=== PATIENT | female | born 1975 | race Hispanic/Latino ===

== ENCOUNTER 2024-07-31 10:53 | Emergency (ER) | payer MEDICAID ==
[2024-07-31 11:13] LABS: Absolute Neutrophil Ct (ANC) 2.44 x10^3/uL (1.56-6.13); BASOPHIL % 0.4 % (0.1-1.2); Basophil (Absolute #) 0.02 x10^3/uL (0.01-0.08); Eosinophil % 5.8 % (0.7-5.8); Eosinophil (Absolute #) 0.29 x10^3/uL (0.04-0.36); Hematocrit 31.7 % (34.1-44.9); Hemoglobin 9.3 g/dL (11.2-15.7); IMMATURE GRAN # 0.01 x10^3u/L (0.001-0.031); IMMATURE GRAN % 0.2 % (0.001-0.429); Lymphocyte (Absolute #) 1.82 x10^3/uL (1.18-3.74); Lymphocytes % 36.5 % (19.3-51.7); Mean Cell Volume 67.4 fL (79.4-94.8); Mean Corpuscular Hemoglobin 19.8 pg (25.6-32.2); Mean Corpuscular Hgb Concent. 29.3 g/dL (32.2-35.5); Mean Platelet Volume 9.2 fL (9.4-12.3); Neutrophil % 49.1 % (34.0-71.1); Platelet Count 437 x10^3/uL (182-369); Red Cell Distribution Width 17.9 % (11.7-14.4)
[2024-07-31] MEDS ORDERED: BABY ASPIRIN 81 MG CHEW ONE (11:13)
[2024-07-31] MEDS ORDERED: Zofran 4 MG/2 ML VIAL ONE (11:13)
[2024-07-31] MEDS ORDERED: Pepcid 20 MG VIAL IV ONE (11:13)
[2024-07-31] MEDS ORDERED: NITRO-BID 2% UD PACKETS ONE (11:13)
[2024-07-31] MEDS ORDERED: Sodium Chloride 0.9% 1000 ML 1,000 ML ONE (11:14)
[2024-07-31] MEDS ORDERED: MORPHINE SULFATE 4 MG INJ ONE (11:14)
[2024-07-31] MEDS: Sodium Chloride 0.9% 1000 ML 1,000 ML IV STA (11:17)
[2024-07-31] MEDS: BABY ASPIRIN 81 MG CHEW PO ONE (11:18)
[2024-07-31] MEDS: Zofran 4 MG/2 ML VIAL IV ONE (11:19)
[2024-07-31] MEDS: NITRO-BID 2% UD PACKETS TOP ONE (11:21)
[2024-07-31] MEDS: MORPHINE SULFATE 4 MG INJ IV ONE (11:21)
[2024-07-31] MEDS: Pepcid 20 MG VIAL IV ONE (11:21)
[2024-07-31 11:23] VITALS: TEMP 97.8
[2024-07-31 11:33] LABS: ANION GAP 9.1 MEQ/L (5-15); BILIRUBIN,TOTAL 0.3 mg/dL (0.2-1.3); Creatinine 1 0.49 mg/dL (0.52-1.04); EST GLOMERULAR FILTRATION RATE 117.6 ML/MIN; Total Protein 6.9 g/dL (6.3-8.2)
--- NOTE | 2024-07-31 11:37 | ERPHSYRPT ---
- History of Present Illness Time Seen by Provider: 07/31/24 13:35 Patient Subjective Stated Complaint: Chest pain Triage Nursing Assessment: Patient ambulated back to ED and transferred self to bed. Patient speaks english and has a friend with her to translate. Patient A+O X 3. Patient's skin pink, warm and dry. Patient complains of intermittent chest pain the goes down left shoulder/arm and into back 8/10 for the past few days. Patient also complains of N/V. Patient takes Omeprazole for GERD, but has been out for 5 days. Patient also complains of pain to behind right knee. Right knee noted to be swollen. Physician History: Patient complains of intermittent chest pain the goes down left shoulder/arm and into back 8/10 for the past few days. Patient also complains of N/V. Patient takes Omeprazole for GERD, but has been out for 5 days. Patient also complains o f pain to behind right knee. Right knee noted to be swollen. Hx of pulmonary Embolism 3 years ago. Patient was on Coumadin for her pulmonary embolism which was stopped approximately 1 year ago as right side of the pulmonary embolism same findings where stabilized. Timing/Duration: today Activities at Onset: none Quality: sharpness Location: substernal Chest Pain Radiation: arm, back Severity of Pain-Max: moderate Severity of Pain-Current: moderate Associated Symptoms: nausea, vomiting Prior Chest Pain/Cardiac Workup: no prior chest pain Nitro Today/Relief: no nitro taken today Aspirin Treatment Today: no aspirin today Allergies/Adverse Reactions: No Known Drug Allergies Allergy (Unverified 07/31/24 11:04) Hx Tetanus, Diphtheria Vaccination/Date Given: No Hx Influenza Vaccination/Date Given: No Hx Pneumococcal Vaccination/Date Given: No Immunizations Up to Date: Yes Travel Risk - International Travel Have you traveled outside of the country in past 3 weeks: No - Emerging Infectious Disease Are you exhibiting symptoms associated with any current EIDs: No - Review of Systems Constitutional: No Fever, No Chills Eyes: No Symptoms Ears, Nose, & Throat: No Symptoms Respiratory: No Cough, No Dyspnea Cardiac: Chest Pain, No Edema, No Syncope Abdominal/Gastrointestinal: Nausea, Vomiting, No Abdominal Pain, No Diarrhea Genitourinary Symptoms: No Dysuria Musculoskeletal: Other (pain behind left knee), No Back Pain, No Neck Pain Skin: No Rash Neurological: No Dizziness, No Focal Weakness, No Sensory Changes Psychological: No Symptoms Endocrine: No Symptoms All Other Systems: Reviewed and Negative - Past Medical History Pertinent Past Medical History: Yes Neurological History: No Pertinent History ENT History: No Pertinent History Cardiac History: No Pertinent History Respiratory History: No Pertinent History Endocrine Medical History: No Pertinent History Musculoskeletal History: No Pertinent History GI Medical History: GERD History: No Pertinent History Psycho-Social History: No Pertinent History Female Reproductive Disorders: No Pertinent History Other Medical History: had blood clots in lung-was on meds for 1 year 4 years ago - Past Surgical History Past Surgical History: Yes Neuro Surgical History: No Pertinent History Cardiac: No Pertinent History Respiratory: No Pertinent History Gastrointestinal: No Pertinent History Genitourinary: No Pertinent History Musculoskeletal: No Pertinent History Female Surgical History: Section Other Surgical History: C section X 1 - Female History Hx Last Menstrual Period: 2 days ago Hx Now: No - Social History Smoking Status: Never smoker Exposure to second hand smoke: No Drug Use: none - Social Determinants of Health Will the patient participate in the screening: Yes Do you worry about a steady place to live?: No Do you have any problems with any of the following?: No known problems In the past 12 months,have you had to go without utilities?: No Transportation Issues: No Has anyone in your support network made you feel unsafe?: No Have you or anyone in your house had to go without enough: No - Nursing Vital Signs Nursing Vital Signs: Initial Vital Signs Pulse Rate 68 07/31/24 11:00 Respiratory Rate 20 07/31/24 11:00 Pain Scale Pain Intensity 2 - Physical Exam General Appearance: no apparent distress, alert Eye Exam: PERRL/EOMI, eyes nml inspection Ears, Nose, Throat Exam: normal ENT inspection, moist mucous membranes Neck Exam: normal inspection, non-tender, supple, full range of motion Respiratory Exam: normal breath sounds, lungs clear, No respiratory distress Cardiovascular Exam: regular rate/rhythm, normal heart sounds Gastrointestinal/Abdomen Exam: soft, No tenderness, No mass Back Exam: normal inspection, No CVA tenderness, No vertebral tenderness Extremity Exam: normal inspection, normal range of motion, calf tenderness (left), inflammation, No shanice's sign Neurologic Exam: alert, oriented x 3, cooperative, normal mood/affect, sensation nml, No motor deficits Skin Exam: normal color, warm, dry SpO2 Interpretation: normal SpO2: 98 O2 Delivery: Room Air - Course Nursing assessment & vital signs reviewed: Yes - Radiology Exams Chest X-ray Interpretation: Interpreted by me, Reviewed by me, No Pneumonia, No Pneumothorax - CT Exams Chest CT Interpretation: Tele-radiologist Report Ordered Tests: Active Orders 24 hr Category Date Time Status Human Resources Communications Manager STAT Care 07/31/24 11:01 Active EKG-ER Only STAT Care 07/31/24 11:01 Active Oxygen-ED Only Nasal Cannula 2 lpm Care 07/31/24 11:01 Active CHEST 1 VIEW (PORTABLE) Stat Exams 07/31/24 11:01 Taken CHEST WITH CONTRAST [CT] Stat Exams 07/31/24 11:43 Completed KNEE (3 VIEWS) Stat Exams 07/31/24 12:12 Taken CBC W DIFF Stat Lab 07/31/24 11:08 Completed CMP Stat Lab 07/31/24 11:08 Completed D-DIMER QUANTITATIVE Stat Lab 07/31/24 11:08 Completed TROPONIN Q4H Lab 07/31/24 11:08 Completed TROPONIN Q4H Lab 07/31/24 15:15 Ordered TROPONIN Q4H Lab 07/31/24 19:15 Ordered Uric Acid Stat Lab 07/31/24 11:08 Completed Medication Summary Discontinued Medications Generic Name Dose Route Start Last Admin Trade Name Freq PRN Reason Stop Dose Admin Aspirin 81 mg 07/31/24 11:01 07/31/24 11:18 Aspirin 81 Mg Tab.Chew PO 07/31/24 11:02 81 mg STAT ONE Administration Aspirin Confirm 07/31/24 11:13 Aspirin 81 Mg Tab.Chew Administered 07/31/24 11:14 Dose 81 mg .ROUTE .STK-MED ONE Enoxaparin Sodium 120 mg 07/31/24 13:37 Enoxaparin Sodium 120 Mg/0.8 Ml Syringe SQ 07/31/24 13:38 STAT STA Famotidine 20 mg 07/31/24 11:01 07/31/24 11:21 Famotidine 20 Mg/1 Vial IV 07/31/24 11:02 20 mg STAT ONE Administration Famotidine Confirm 07/31/24 11:13 Famotidine 20 Mg/1 Vial Administered 07/31/24 11:14 Dose 20 mg IV .STK-MED ONE Sodium Chloride 1,000 mls @ 999 mls/hr 07/31/24 11:01 07/31/24 12:21 Sodium Chloride 0.9% 1000 Ml IV 07/31/24 12:01 Infused .Q1H1M STA Infusion Sodium Chloride Confirm 07/31/24 11:14 Sodium Chloride 0.9% 1000 Ml Administered 07/31/24 11:15 Dose 1,000 mls @ ud .ROUTE .STK-MED ONE Ketorolac Tromethamine 60 mg 07/31/24 12:52 07/31/24 13:02 Ketorolac Tromethamine 30 Mg/Ml Inj IM 07/31/24 12:53 Not Given STAT ONE Ketorolac Tromethamine 30 mg 07/31/24 13:02 07/31/24 13:04 Ketorolac Tromethamine 30 Mg/Ml Inj IV 07/31/24 13:03 30 mg STAT ONE Administration Ketorolac Tromethamine Confirm 07/31/24 13:03 Ketorolac Tromethamine 30 Mg/Ml Inj Administered 07/31/24 13:04 Dose 30 mg .ROUTE .STK-MED ONE Morphine Sulfate 4 mg 07/31/24 11:01 07/31/24 11:21 Morphine Sulfate 4 Mg/Ml Injection IV 07/31/24 11:02 4 mg STAT ONE Administration Morphine Sulfate Confirm 07/31/24 11:14 Morphine Sulfate 4 Mg/Ml Injection Administered 07/31/24 11:15 Dose 4 mg .ROUTE .STK-MED ONE Nitroglycerin 1 gm 07/31/24 11:01 07/31/24 11:21 Nitroglycerin 1 Gm Packet TOP 07/31/24 11:02 1 gm STAT ONE Administration Nitroglycerin Confirm 07/31/24 11:13 Nitroglycerin 1 Gm Packet Administered 07/31/24 11:14 Dose 1 gm .ROUTE .STK-MED ONE Ondansetron HCl 4 mg 07/31/24 11:01 07/31/24 11:19 Ondansetron Hcl 4 Mg/2 Ml Vial IV 07/31/24 11:02 4 mg STAT ONE Administration Ondansetron HCl Confirm 07/31/24 11:13 Ondansetron Hcl 4 Mg/2 Ml Vial Administered 07/31/24 11:14 Dose 4 mg .ROUTE .STK-MED ONE Pantoprazole Sodium 40 mg 07/31/24 13:04 07/31/24 13:17 Pantoprazole 40 Mg Vial IV 07/31/24 13:05 40 mg STAT ONE Administration Pantoprazole Sodium Confirm 07/31/24 13:16 Pantoprazole 40 Mg Vial Administered 07/31/24 13:17 Dose 40 mg IV .STK-MED ONE Rivaroxaban 20 mg 07/31/24 13:39 Rivaroxaban 10 Mg Tablet PO 07/31/24 13:40 ONCE ONE Lab/Rad Data: Laboratory Result Diagrams 07/31/24 11:08 07/31/24 11:08 Laboratory Results 07/31/24 07/31/24 07/31/24 Range/Units 11:08 11:08 11:08 WBC (3.98-10.04) x10^3/uL RBC (3.93-5.22) x10^6/uL Hgb (11.2-15.7) g/dL Hct (34.1-44.9) % MCV (79.4-94.8) fL MCH (25.6-32.2) pg MCHC (32.2-35.5) g/dL RDW (11.7-14.4) % Plt Count (182-369) x10^3/uL MPV (9.4-12.3) fL Gran % (34.0-71.1) % Immature Gran % (Auto) (0.001-0.429) % Nucleat RBC Rel Count (0.00-0.2) % Eos # (Auto) (0.04-0.36) x10^3/uL Immature Gran # (Auto) (0.001-0.031) x10^3u/L Absolute Lymphs (auto) (1.18-3.74) x10^3/uL Absolute Monos (auto) (0.24-0.86) x10^3/uL Absolute Nucleated RBC (0.00-0.012) x10^3u/L Lymphocytes % (19.3-51.7) % Monocytes % (4.7-12.5) % Eosinophils % (0.7-5.8) % Basophils % (0.1-1.2) % Absolute Granulocytes (1.56-6.13) x10^3/uL Basophils # (0.01-0.08) x10^3/uL D-Dimer 0.68 H* (0.0-0.50) mg/L Sodium (135-145) mmol/L Potassium (3.5-5.1) mmol/L Chloride (98-107) mmol/L Carbon Dioxide (22-30) mmol/L Anion Gap (5-15) MEQ/L BUN (7-17) mg/dL Creatinine (0.52-1.04) mg/dL Estimated GFR ML/MIN Glucose (74-106) mg/dL Uric Acid 4.0 (2.6-6.0) mg/dL Calcium (8.4-10.2) mg/dL Total Bilirubin (0.2-1.3) mg/dL AST (14-36) U/L ALT (0-35) U/L Alkaline Phosphatase (38-126) U/L Troponin I < 0.012 (0.000-0.033) ng/mL Serum Total Protein (6.3-8.2) g/dL Albumin (3.5-5.0) g/dL 07/31/24 07/31/24 Range/Units 11:08 11:08 WBC 5.0 (3.98-10.04) x10^3/uL RBC 4.70 (3.93-5.22) x10^6/uL Hgb 9.3 L (11.2-15.7) g/dL Hct 31.7 L (34.1-44.9) % MCV 67.4 L (79.4-94.8) fL MCH 19.8 L (25.6-32.2) pg MCHC 29.3 L (32.2-35.5) g/dL RDW 17.9 H (11.7-14.4) % Plt Count 437 H (182-369) x10^3/uL MPV 9.2 L (9.4-12.3) fL Gran % 49.1 (34.0-71.1) % Immature Gran % (Auto) 0.2 (0.001-0.429) % Nucleat RBC Rel Count 0.0 (0.00-0.2) % Eos # (Auto) 0.29 (0.04-0.36) x10^3/uL Immature Gran # (Auto) 0.01 (0.001-0.031) x10^3u/L Absolute Lymphs (auto) 1.82 (1.18-3.74) x10^3/uL Absolute Monos (auto) 0.40 (0.24-0.86) x10^3/uL Absolute Nucleated RBC 0.00 (0.00-0.012) x10^3u/L Lymphocytes % 36.5 (19.3-51.7) % Monocytes % 8.0 (4.7-12.5) % Eosinophils % 5.8 (0.7-5.8) % Basophils % 0.4 (0.1-1.2) % Absolute Granulocytes 2.44 (1.56-6.13) x10^3/uL Basophils # 0.02 (0.01-0.08) x10^3/uL D-Dimer (0.0-0.50) mg/L Sodium 138 (135-145) mmol/L Potassium 4.0 (3.5-5.1) mmol/L Chloride 108 H (98-107) mmol/L Carbon Dioxide 25 (22-30) mmol/L Anion Gap 9.1 (5-15) MEQ/L BUN 6 L (7-17) mg/dL Creatinine 0.49 L (0.52-1.04) mg/dL Estimated GFR 117.6 ML/MIN Glucose 102 (74-106) mg/dL Uric Acid (2.6-6.0) mg/dL Calcium 9.0 (8.4-10.2) mg/dL Total Bilirubin 0.30 (0.2-1.3) mg/dL AST 26 (14-36) U/L ALT 19 (0-35) U/L Alkaline Phosphatase 82 (38-126) U/L Troponin I (0.000-0.033) ng/mL Serum Total Protein 6.9 (6.3-8.2) g/dL Albumin 4.0 (3.5-5.0) g/dL CLINICAL HISTORY: chest pain, elevated d-dimer COMPARISON: None. TECHNIQUE: Contiguous axial CT angiographic images of the chest were acquired with the administration of intravenous contrast. Coronal and sagittal reconstructions were also obtained. One of these 3D techniques was utilized: Maximum Intensity Pixel (MIP), 3D Reconstructed Images, Volume Rendered Images, Surface Shaded Rendering. One of the following dose reduction techniques was utilized for this exam: Automated exposure control, adjustment of the mA and/or kV according to patient size, and use of iterative reconstruction. FINDINGS: Aorta: The thoracic aorta is normal in caliber. No evidence of aneurysm, dissection, or significant atherosclerotic changes. The aortic arch and descending thoracic aorta are unremarkable. Pulmonary Arteries: The right thrombus obstructs about 30% occlusion of the right lower lobe posterior subsegmental branch and extended to the second generation right lower lobe causing less than 60% obstruction thrombus much appreciated on axial and coronal images. Otherwise, pulmonary arteries are normal in size and opacification. No evidence of pulmonary embolism. PatientID: [id number] Patient Name: JASON BARBA Exam Date: 07/31/2024 Procedure: CHEST WITH CONTRAST page 1 of 3 No stenosis or filling defects. Superior Vena Cava (SVC) and Inferior Vena Cava (IVC): Normal opacification and caliber. There is no evidence of thrombus or obstruction. Coronary Arteries: Coronary arteries are well-opacified. No significant stenosis or atherosclerotic changes. Mediastinum: Evidence of wide diaphragmatic hiatus with sliding hernia harboring part of another gastric fundus. No mediastinal mass or lymphadenopathy apart from small left para-aortic lymph nodes was noted. Normal appearance of the thymus. Heart: Normal size and morphology of the heart. No pericardial effusion. Lungs: Bilateral posterior subpleural fine fibrotic bands/gravitational changes. Lungs are clear with no evidence of consolidation, nodules, or masses. No pleural effusion or thickening. Bones: No fractures or lytic/sclerotic lesions of the visualized bony structures. Normal alignment and bone density. Soft Tissues: Normal appearance of the visualized soft tissues. No abnormal masses or fluid collections. IMPRESSION: 1. The right thrombus obstructs about 30% occlusion of the right lower lobe posterior subsegmental branch and extended to the second generation right lower lobe causing less than 60% obstruction thrombus much appreciated on axial and coronal images. 2. Small para-aortic reactive lymph node is seen. 3. Evidence of diaphragmatic hiatus hernia. [facility] ER was called at [phone] - Progress Progress: improved Air Movement: good Progress Note: 07/31/24 14:03 Patient left side chest pain is much better. Patient CT of the chest did show some right side second generation pulmonary artery occlusion 30% due to previous pulmonary embolism as well as third-generation right lower lobe occlusion about 60% which appears to be stable. Patient is denying any pain on the right side of the chest. 1 CAT scan patient also has a large sliding hiatal hernia for which patient has been taking omeprazole but has not taken for last few weeks. I sent a prescription to the pharmacy and advised her to stay on that. Patient has a right knee swelling x-ray did not reveal any significant finding but right lower extremity venous duplex is ordered just to confirm popliteal cyst or a DVT. Right venous duplex next right lower extremity ordered on Friday which is in 3 days. Patient is informed about all this diagnostic testing with the help of rn clinical documentation specialist. Patient is advised that if her chest pain come back she needs to come back to the emergency room. Patient has a pulmonary embolism on the right side which was treated with Coumadin for at least 2 to 3 years and then afterwards once that stabilized Coumadin was stopped. Patient does not have any complaint on the right side of the chest where she had a pulmonary embolism. Blood Culture(s) Obtained: No Antibiotics given: No Counseled pt/family regarding: lab results, diagnosis, need for follow-up, rad results Medical Desision Making - Independent Historian Additional History obtained from: Family - Diagnostic Testing Diagnostic test were ordered, analyzed, and reviewed by me: Yes Radiological Interpretation: Interpreted by me, Reviewed by me, Teleradiologist Report - Risk of complications Low Risk: Low risk of morbidity from additional dx testing or treatment - Departure Departure Disposition: Home Clinical Impression: Left-sided chest wall pain, Sliding hiatal hernia, History of pulmonary embolism, Right medial knee pain Condition: Stable Critical Care Time: No Referrals: DOCTOR,NO FAMILY [Primary Care Provider] - Follow up/PCP as directed Instructions: Hiatal hernia, Chest Pain (DC), Hiatal hernia - Discharge instructions Additional Instructions: Symptoms require come immediately back to emergency room. You are scheduled for venous duplex test on your right lower extremity on Friday at [facility]. Discharge/Care Plan JAMESONJASON was seen on 07/31/24 in the Emergency Room. The patient was counseled regarding Diagnosis,Lab results, Imaging studies, need for follow up and when to return to the Emergency Room. Prescriptions given: Discharge Note I have spoken with the patient and/or caregivers. I have explained the patient's condition, diagnosis and treatment plan based on the information available to me at this time. I have answered the patient's and/or caregiver's questions and addressed any concerns. The patient and/or caregivers have as good understanding of the patient's diagnosis, condition and treatment plan as can be expected at this point. The vital signs have been stable. The patient's condition is stable and appropriate for discharge from the emergency department. The patient will pursue further outpatient evaluation with the primary care physician or other designated or consulting physician as outlined in the discharge instructions. The patient and/or caregivers are agreeable to this plan of care and follow-up instructions have been explained in detail. The patient and/or caregivers have received these instruction. The patient/and or caregivers are aware that any significant change in condition or worsening of symptoms should prompt an immediate return to this or the closest emergency department or call 911. JAMESONJASON was seen on 07/31/24 n the Emergency Room. At that time you were treated for an emergent condition, during your visit Laboratory, Radiology and/or other procedures may have been ordered. It is very important that you follow-up with your Primary Care Physician NO FAMILY DOCTOR within the next 24- 48 hours to review your Emergency Room visit and the final results of testing that was ordered. Some test results such as Urine Cultures, Blood Cultures, and other cultures if ordered will not be finalized for 24-48 hours. If you do not have a Primary Care Provider please call the medical records department at [phone] ext [phone] to obtain a copy of your results or you may sign into our patient portal to obtain these results by visiting us @ [email or web address] and completing the following steps: 1. Click on the Patient Portal link 2. Click the Patient Self Enrollment Link to complete the enrollment form and entering your 3. Once the enrollment form is completed you will receive an email with a temporary ID and password at the email address you provided. 4. Next choose a user name and password. Your user name must be at least 4 characters long and your password must be at least 4 characters long. 5. Choose a security question from the list and provide your answer to the question. If you already have signed into the Health Portal you may access your Health Care Information 24/02 by the following steps: 1. Login to our website @ [email or web address] 2. Enter your original user name and password. FAQS [facility] Health Portal is an online tool that contains your Lab Results, Radiology Reports, Visit History, Discharge Instructions and Health Summary Lab and Radiology Results will not be available for 72 hours on the portal. The Portal is a secure site, passwords are encryted and URLs are re-written so they cannot be copied and pasted. You and authorized family members are the only ones who can access your Portal. Also there is a timeout feature that protects your information if you leave the Portal page open. If you have technical difficulty please use the Contact Us link on the page this will allow you to submit any questions you have regarding the Portal or you may contact the Medical Record Department at [phone] ext [phone]. Prescriptions: Omeprazole 1 tab PO DAILY 30 Days #30 tablet Outpatient Orders: VENOUS UNILAT/LIMITED EXTREMIT Facility: [facility], Location: RADIOLOGY
[2024-07-31] MEDS: TORAdol 30 mg Injection IM ONE (13:02)
[2024-07-31] MEDS ORDERED: TORAdol 30 mg Injection ONE (13:03)
[2024-07-31] MEDS: TORAdol 30 mg Injection IV ONE (13:04)
[2024-07-31] MEDS ORDERED: PROTONIX 40 MG IV IV ONE (13:16)
[2024-07-31] MEDS: PROTONIX 40 MG IV IV ONE (13:17)
--- NOTE | 2024-07-31 13:24 | XRAY ---
CLINICAL HISTORY: chest pain, elevated d-dimer COMPARISON: None. TECHNIQUE: Contiguous axial CT angiographic images of the chest were acquired with the administration of intravenous contrast. Coronal and sagittal reconstructions were also obtained. One of these 3D techniques was utilized: Maximum Intensity Pixel (MIP), 3D Reconstructed Images, Volume Rendered Images, Surface Shaded Rendering. One of the following dose reduction techniques was utilized for this exam: Automated exposure control, adjustment of the mA and/or kV according to patient size, and use of iterative reconstruction. FINDINGS: Aorta: The thoracic aorta is normal in caliber. No evidence of aneurysm, dissection, or significant atherosclerotic changes. The aortic arch and descending thoracic aorta are unremarkable. Pulmonary Arteries: The right thrombus obstructs about 30% occlusion of the right lower lobe posterior subsegmental branch and extended to the second generation right lower lobe causing less than 60% obstruction thrombus much appreciated on axial and coronal images. Otherwise, pulmonary arteries are normal in size and opacification. No evidence of pulmonary embolism. No stenosis or filling defects. Superior Vena Cava (SVC) and Inferior Vena Cava (IVC): Normal opacification and caliber. There is no evidence of thrombus or obstruction. Coronary Arteries: Coronary arteries are well-opacified. No significant stenosis or atherosclerotic changes. Mediastinum: Evidence of wide diaphragmatic hiatus with sliding hernia harboring part of another gastric fundus. No mediastinal mass or lymphadenopathy apart from small left para-aortic lymph nodes was noted. Normal appearance of the thymus. Heart: Normal size and morphology of the heart. No pericardial effusion. Lungs: Bilateral posterior subpleural fine fibrotic bands/gravitational changes. Lungs are clear with no evidence of consolidation, nodules, or masses. No pleural effusion or thickening. Bones: No fractures or lytic/sclerotic lesions of the visualized bony structures. Normal alignment and bone density. Soft Tissues: Normal appearance of the visualized soft tissues. No abnormal masses or fluid collections. IMPRESSION: 1. The right thrombus obstructs about 30% occlusion of the right lower lobe posterior subsegmental branch and extended to the second generation right lower lobe causing less than 60% obstruction thrombus much appreciated on axial and coronal images. 2. Small para-aortic reactive lymph node is seen. 3. Evidence of diaphragmatic hiatus hernia. [facility] ER was called at [phone] at 01:15 PM EST, 07/31/2024 and Roselyn(BANDAR) was informed regarding the presence of Significant Medical Findings on the report. Electronically Signed by: Jared Brooks MD. (07/31/2024 13:19:21 EST)
[2024-07-31 14:04] VITALS: RESP 17
[2024-07-31 14:08] VITALS: O2SAT 98
[2024-07-31] MEDS: ENOXAPARIN SODIUM SQ STA (14:21)
[2024-07-31] MEDS: XARELTO 10 MG TABLET PO ONE (14:22)
[2024-07-31 14:47] VITALS: BP 130/86; PULSE 72
--- NOTE | 2024-07-31 20:14 | XRAY ---
Indication: Chest pain. Comparison: None Portable chest demonstrates normal heart and lungs. Bony thorax intact. No acute findings.
--- NOTE | 2024-07-31 20:16 | XRAY ---
Indication: Pain and swelling. Comparison: None 3 view right knee demonstrates tiny medial supra condyle spurring. No other bony, articular, or soft tissue abnormalities.
== END 2024-07-31 14:50 | disposition home or self-care (01) ==
LOC: ED 10:53
DX: R07.89 Other chest pain (principal); R11.2 Nausea with vomiting, unspecified; M25.561 Pain in right knee; K44.9 Diaphragmatic hernia without obstruction or gangrene; Z86.711 Personal history of pulmonary embolism
CPT/HCPCS: 36415; 71045; 71260; 73562; 80053; 84484; 84550; 85025; 85379; 93005; 93041; 96360; 96374; 96375; 99285; J1885; J2270; J2405; A9270-GY

== ENCOUNTER 2024-08-14 15:19 | Emergency (ER) | payer SELFPAY ==
[2024-08-14 16:11] VITALS: TEMP 98.1
--- NOTE | 2024-08-14 16:41 | ERPHSYRPT ---
- History of Present Illness Historian: patient Exam Limitations: no limitations Patient Subjective Stated Complaint: Pt is [place] island[place] speaking only, has a friend with her to translate who states pt started having abdominal pain approx 3 days ago. Vomited one time today. Last BM yesterday, nothing abnormal noted about stool. Pain is in right upper quad radiating to back. Triage Nursing Assessment: Pt alert and oriented x3. Respirations easy/nonlabored. Skin w/p/d. Ambulated to ED cot without difficulty. Active bowel sounds in all four quads. Abdomen soft/nontender with palpation. No active vomiting at this time. Timing/Duration: day(s) (3) Activities at Onset: none Quality: sharpness Abdominal Pain Onset Location: RUQ Pain Radiation: scapula, back Severity of Pain-Max: moderate Severity of Pain-Current: moderate Modifying Factors: Improves With: nothing Associated Symptoms: back, chest pain Previous symptoms: no prior history Hx Tetanus, Diphtheria Vaccination/Date Given: No Hx Influenza Vaccination/Date Given: No Hx Pneumococcal Vaccination/Date Given: No <DIANNE BOND - Last Filed: 08/14/24 18:59> <RALPH WELCH - Last Filed: 08/14/24 21:05> - History of Present Illness Time Seen by Provider: 08/14/24 16:25 Physician History: 48yo f presents via private vehicle for RUQ abdominal pain x 3d. Pt reports the pain radiates from her RUQ around into her back. Pt reports 1 episode of vomiting today, NBNB. Pt states her last BM was yesterday, does intermittently suffer from constipation. Pt denies any diarrhea or recent changes in diet. Pt has hx of c/s and tummy tuck procedure both > 5yrs ago. Pt denies any hematuria or dysuria. Pt was recently diagnosed w/ PE in july, was started on eliquis and has been taking her medication as prescribed, does endorse some intermittent left sided cp but does not currently endorse any cp. Pt does endorse hx of kidney stones. (DIANNE BOND) Allergies/Adverse Reactions: No Known Drug Allergies Allergy (Unverified 08/14/24 16:02) Home Medications: Apixaban [Eliquis] 1 tab PO BID 08/14/24 [History] Travel Risk - International Travel Have you traveled outside of the country in past 3 weeks: No - Emerging Infectious Disease Are you exhibiting symptoms associated with any current EIDs: Yes Symptoms: Abdominal Pain, Vomitting <VARUNDIANNE RODNEY - Last Filed: 08/14/24 18:59> - Review of Systems Constitutional: No Symptoms Respiratory: No Symptoms Cardiac: Chest Pain, No Edema, No Palpitations Abdominal/Gastrointestinal: Abdominal Pain, Nausea, Vomiting, No Diarrhea, No Hematemesis, No Hematochezia Genitourinary Symptoms: No Symptoms <DIANNE BOND - Last Filed: 08/14/24 18:59> - Past Medical History Pertinent Past Medical History: Yes Neurological History: No Pertinent History ENT History: No Pertinent History Cardiac History: Deep Vein Thrombosis Respiratory History: No Pertinent History Endocrine Medical History: No Pertinent History Musculoskeletal History: No Pertinent History GI Medical History: GERD History: No Pertinent History Psycho-Social History: No Pertinent History Female Reproductive Disorders: No Pertinent History Other Medical History: had blood clots in lung-was on meds for 1 year 4 years ago - Past Surgical History Past Surgical History: Yes Neuro Surgical History: No Pertinent History Cardiac: No Pertinent History Respiratory: No Pertinent History Gastrointestinal: No Pertinent History Genitourinary: No Pertinent History Musculoskeletal: No Pertinent History Female Surgical History: Section Other Surgical History: C section X 1, tummy tuc approx 2021 - Female History Hx Last Menstrual Period: 2 weeks ago Hx Now: No - Social History Smoking Status: Never smoker Exposure to second hand smoke: No Drug Use: none - Social Determinants of Health Will the patient participate in the screening: Declined to provide <DIANNE BOND - Last Filed: 08/14/24 18:59> - Physical Exam General Appearance: no apparent distress, alert Respiratory Exam: normal breath sounds, lungs clear, airway intact, No chest tenderness, No respiratory distress, No crackles/rales, No rhonchi, No wheezing Cardiovascular Exam: regular rate/rhythm, normal heart sounds, normal peripheral pulses, capillary refill <2 sec Gastrointestinal/Abdomen Exam: soft, normal bowel sounds, tenderness (RUQ), No distention, No guarding, No pulsatile mass, No rebound, No organomegaly Back Exam: normal inspection, CVA tenderness (minimal flank tenderness right sided) Neurologic Exam: alert, oriented x 3, cooperative Skin Exam: normal color SpO2 Interpretation: normal SpO2: 98 O2 Delivery: Room Air <DIANNE BOND - Last Filed: 08/14/24 18:59> - Nursing Vital Signs Nursing Vital Signs: Initial Vital Signs Temperature 98.1 F 08/14/24 15:51 Pulse Rate 69 08/14/24 15:51 Blood Pressure 139/88 08/14/24 15:51 O2 Sat by Pulse Oximetry 100 08/14/24 15:51 Pain Scale Pain Intensity 6 - Course EKG Interpreted by Me: RATE (64), Sinus Rhythm, NORMAL ST-T, Other (not suggestive of acute ischemia) <DIANNE BOND - Last Filed: 08/14/24 18:59> - Course Nursing assessment & vital signs reviewed: Yes - CT Exams Abdomen/Pelvis CT Interpretation: Tele-radiologist Report, Other (No nephrolithiasis, noncomplicated colonic diverticulosis, bulky uterus with fluid within canal) Chest CT Interpretation: Tele-radiologist Report, Other (previous PE resolved, small hiatal hernia, otherwise normal) <RALPH WELCH - Last Filed: 08/14/24 21:05> Ordered Tests: Active Orders 24 hr Category Date Time Status EKG-ER Only STAT Care 08/14/24 16:38 Active IV Insertion STAT Care 08/14/24 16:38 Active ABDOMEN AND PELVIS W&WO CONTRA [CT] Stat Exams 08/14/24 16:40 Completed CHEST WITH CONTRAST [CT] Stat Exams 08/14/24 16:40 Completed CBC W DIFF Stat Lab 08/14/24 16:57 Completed CMP Stat Lab 08/14/24 16:57 Completed HCG QUALITATIVE, URINE Stat Lab 08/14/24 16:30 Completed LIPASE Stat Lab 08/14/24 16:57 Completed TROPONIN Q4H Lab 08/14/24 16:57 Completed TROPONIN Q4H Lab 08/14/24 20:45 Ordered TROPONIN Q4H Lab 08/15/24 00:45 Ordered UA W/RFX UR CULTURE Stat Lab 08/14/24 16:30 Completed Medication Summary Discontinued Medications Generic Name Dose Route Start Last Admin Trade Name Freq PRN Reason Stop Dose Admin Sodium Chloride 1,000 mls @ 999 mls/hr 08/14/24 16:38 08/14/24 18:22 Sodium Chloride 0.9% 1000 Ml IV 08/14/24 17:38 Infused .Q1H1M STA Infusion Sodium Chloride Confirm 08/14/24 16:51 Sodium Chloride 0.9% 1000 Ml Administered 08/14/24 16:52 Dose 1,000 mls @ ud .ROUTE .STK-MED ONE Morphine Sulfate 2 mg 08/14/24 16:38 08/14/24 16:54 Morphine Sulfate 2 Mg/Ml Inj IV 08/14/24 16:39 2 mg STAT ONE Administration Morphine Sulfate Confirm 08/14/24 16:50 Morphine Sulfate 2 Mg/Ml Inj Administered 08/14/24 16:51 Dose 2 mg .ROUTE .STK-MED ONE Ondansetron HCl 4 mg 08/14/24 16:38 08/14/24 16:54 Ondansetron Hcl 4 Mg/2 Ml Vial IV 08/14/24 16:39 4 mg STAT ONE Administration Ondansetron HCl Confirm 08/14/24 16:50 Ondansetron Hcl 4 Mg/2 Ml Vial Administered 08/14/24 16:51 Dose 4 mg .ROUTE .STK-MED ONE Lab/Rad Data: Laboratory Result Diagrams 08/14/24 16:57 08/14/24 16:57 Laboratory Results 08/14/24 08/14/24 08/14/24 Range/Units 16:57 16:57 16:57 WBC 6.0 (3.98-10.04) x10^3/uL RBC 4.61 (3.93-5.22) x10^6/uL Hgb 9.2 L (11.2-15.7) g/dL Hct 31.0 L (34.1-44.9) % MCV 67.2 L (79.4-94.8) fL MCH 20.0 L (25.6-32.2) pg MCHC 29.7 L (32.2-35.5) g/dL RDW 17.6 H (11.7-14.4) % Plt Count 368 (182-369) x10^3/uL MPV 9.0 L (9.4-12.3) fL Gran % 51.3 (34.0-71.1) % Immature Gran % (Auto) 0.3 (0.001-0.429) % Nucleat RBC Rel Count 0.0 (0.00-0.2) % Eos # (Auto) 0.27 (0.04-0.36) x10^3/uL Immature Gran # (Auto) 0.02 (0.001-0.031) x10^3u/L Absolute Lymphs (auto) 2.07 (1.18-3.74) x10^3/uL Absolute Monos (auto) 0.54 (0.24-0.86) x10^3/uL Absolute Nucleated RBC 0.00 (0.00-0.012) x10^3u/L Lymphocytes % 34.4 (19.3-51.7) % Monocytes % 9.0 (4.7-12.5) % Eosinophils % 4.5 (0.7-5.8) % Basophils % 0.5 (0.1-1.2) % Absolute Granulocytes 3.08 (1.56-6.13) x10^3/uL Basophils # 0.03 (0.01-0.08) x10^3/uL Sodium 138 (135-145) mmol/L Potassium 4.0 (3.5-5.1) mmol/L Chloride 106 (98-107) mmol/L Carbon Dioxide 25 (22-30) mmol/L Anion Gap 10.6 (5-15) MEQ/L BUN 10 (7-17) mg/dL Creatinine 0.66 (0.52-1.04) mg/dL Estimated GFR 109.5 ML/MIN Glucose 97 (74-106) mg/dL Calcium 8.8 (8.4-10.2) mg/dL Total Bilirubin 0.20 (0.2-1.3) mg/dL AST 28 (14-36) U/L ALT 24 (0-35) U/L Alkaline Phosphatase 80 (38-126) U/L Troponin I < 0.012 (0.000-0.033) ng/mL Serum Total Protein 7.4 (6.3-8.2) g/dL Albumin 4.3 (3.5-5.0) g/dL Lipase 31 (23-300) U/L Urine Color (Yellow) Urine Appearance (Clear) Urine pH (4.6-8.0) Ur Specific [place] (1.005-1.030) Urine Protein (Negative) Urine Glucose (UA) (Negative) mg/dL Urine Ketones (Negative) Urine Blood (Negative) Urine Nitrite (Negative) Urine Bilirubin (Negative) Urine Urobilinogen (0.2) mg/dL Ur Leukocyte Esterase (Negative) U Hyaline Cast (Auto) (0-2) /LPF Urine Microscopic RBC (0-5) /HPF Urine Microscopic WBC (0-5) /HPF Ur Epithelial Cells (None Seen) /HPF Urine Bacteria (None Seen) /HPF Urine Culture Reflexed (NO) Urine HCG, Qual (NEGATIVE) 08/14/24 08/14/24 Range/Units 16:30 16:30 WBC (3.98-10.04) x10^3/uL RBC (3.93-5.22) x10^6/uL Hgb (11.2-15.7) g/dL Hct (34.1-44.9) % MCV (79.4-94.8) fL MCH (25.6-32.2) pg MCHC (32.2-35.5) g/dL RDW (11.7-14.4) % Plt Count (182-369) x10^3/uL MPV (9.4-12.3) fL Gran % (34.0-71.1) % Immature Gran % (Auto) (0.001-0.429) % Nucleat RBC Rel Count (0.00-0.2) % Eos # (Auto) (0.04-0.36) x10^3/uL Immature Gran # (Auto) (0.001-0.031) x10^3u/L Absolute Lymphs (auto) (1.18-3.74) x10^3/uL Absolute Monos (auto) (0.24-0.86) x10^3/uL Absolute Nucleated RBC (0.00-0.012) x10^3u/L Lymphocytes % (19.3-51.7) % Monocytes % (4.7-12.5) % Eosinophils % (0.7-5.8) % Basophils % (0.1-1.2) % Absolute Granulocytes (1.56-6.13) x10^3/uL Basophils # (0.01-0.08) x10^3/uL Sodium (135-145) mmol/L Potassium (3.5-5.1) mmol/L Chloride (98-107) mmol/L Carbon Dioxide (22-30) mmol/L Anion Gap (5-15) MEQ/L BUN (7-17) mg/dL Creatinine (0.52-1.04) mg/dL Estimated GFR ML/MIN Glucose (74-106) mg/dL Calcium (8.4-10.2) mg/dL Total Bilirubin (0.2-1.3) mg/dL AST (14-36) U/L ALT (0-35) U/L Alkaline Phosphatase (38-126) U/L Troponin I (0.000-0.033) ng/mL Serum Total Protein (6.3-8.2) g/dL Albumin (3.5-5.0) g/dL Lipase (23-300) U/L Urine Color Yellow (Yellow) Urine Appearance Clear (Clear) Urine pH 5.0 (4.6-8.0) Ur Specific [place] 1.025 (1.005-1.030) Urine Protein Negative (Negative) Urine Glucose (UA) Negative (Negative) mg/dL Urine Ketones Negative (Negative) Urine Blood Trace (Negative) Urine Nitrite Negative (Negative) Urine Bilirubin Negative (Negative) Urine Urobilinogen 0.2 (0.2) mg/dL Ur Leukocyte Esterase Negative (Negative) U Hyaline Cast (Auto) NONE SEEN (0-2) /LPF Urine Microscopic RBC 0-2 (0-5) /HPF Urine Microscopic WBC 0-2 (0-5) /HPF Ur Epithelial Cells None Seen (None Seen) /HPF Urine Bacteria None Seen (None Seen) /HPF Urine Culture Reflexed NO (NO) Urine HCG, Qual NEGATIVE (NEGATIVE) - Progress Progress: improved <DIANNE BOND - Last Filed: 08/14/24 18:59> - Progress Counseled pt/family regarding: lab results, diagnosis, need for follow-up, rad results <RALPH WELCH - Last Filed: 08/14/24 21:05> - Progress Progress Note: 08/14/24 18:43 pain improved w/ 2mg morphine IV 08/14/24 18:44 hgb 9.3, last check was 9.[address] ch/abd/pel pending 08/14/24 18:59 pt case discussed w/ Dr Welch who will assume care at 19:00 (DIANNE BOND) 08/14/24 20:55 CT chest/abd/pelvis shows noncomplicated colonic diverticulosis, boggy uterus w ith fluid within the canal, small hiatal hernia, resolution of previous PE in right lung. DC home with recommendation for WAIST PLEATER f/u to obtain recommended US. (RALPH WELCH) Medical Desision Making - Diagnostic Testing Diagnostic test were ordered, analyzed, and reviewed by me: Yes <DIANNE BOND - Last Filed: 08/14/24 18:59> - Diagnostic Testing Radiological Interpretation: Interpreted by me, Reviewed by me, Teleradiologist Report - Risk of complications The pt has a mod risk of morbidity or mortality based on: Need for prescription drug management <RALPH WELCH - Last Filed: 08/14/24 21:05> - Departure Critical Care Time: No <DIANNE BOND - Last Filed: 08/14/24 18:59> - Departure Departure Disposition: Home <RALPH WELCH - Last Filed: 08/14/24 21:05> - Departure Clinical Impression: RUQ abdominal pain, Hiatal hernia, Diverticulosis of colon, History of pulmonary embolism, Anemia Nausea & vomiting Qualifiers: Vomiting type: unspecified Qualified Code(s): R11.2 - Nausea with vomiting, unspecified Condition: Stable Referrals: DOCTOR,NO FAMILY [Primary Care Provider] - Follow up/PCP as directed MIRELA BLACK DO [ACTIVE STAFF] - Follow up/PCP as directed PAUL LOVE DO [ACTIVE STAFF] - Follow up/PCP as directed Instructions: Dyspepsia (DC) Prescriptions: Omeprazole 40 mg PO DAILY 30 Days #30 cap
[2024-08-14] MEDS ORDERED: Zofran 4 MG/2 ML VIAL ONE (16:50)
[2024-08-14] MEDS ORDERED: MORPHINE SULFATE 2 MG INJ ONE (16:50)
[2024-08-14] MEDS ORDERED: Sodium Chloride 0.9% 1000 ML 1,000 ML ONE (16:51)
[2024-08-14] MEDS: Sodium Chloride 0.9% 1000 ML 1,000 ML IV STA (16:52)
[2024-08-14] MEDS: Zofran 4 MG/2 ML VIAL IV ONE (16:54)
[2024-08-14] MEDS: MORPHINE SULFATE 2 MG INJ IV ONE (16:54)
[2024-08-14 16:58] LABS: HCG URINE TEST NEGATIVE (NEGATIVE)
[2024-08-14 16:59] LABS: Absolute Neutrophil Ct (ANC) 3.08 x10^3/uL (1.56-6.13); BASOPHIL % 0.5 % (0.1-1.2); Basophil (Absolute #) 0.03 x10^3/uL (0.01-0.08); Eosinophil % 4.5 % (0.7-5.8); Eosinophil (Absolute #) 0.27 x10^3/uL (0.04-0.36); Hemoglobin 9.2 g/dL (11.2-15.7); IMMATURE GRAN # 0.02 x10^3u/L (0.001-0.031); IMMATURE GRAN % 0.3 % (0.001-0.429); Lymphocyte (Absolute #) 2.07 x10^3/uL (1.18-3.74); Lymphocytes % 34.4 % (19.3-51.7); Mean Cell Volume 67.2 fL (79.4-94.8); Mean Corpuscular Hgb Concent. 29.7 g/dL (32.2-35.5); Monocyte (Absolute #) 0.54 x10^3/uL (0.24-0.86); Neutrophil % 51.3 % (34.0-71.1); Platelet Count 368 x10^3/uL (182-369); Red Blood Count 4.61 x10^6/uL (3.93-5.22); Red Cell Distribution Width 17.6 % (11.7-14.4)
[2024-08-14 17:01] LABS: Appearance Clear (Clear); Bacteria None Seen /HPF (None Seen); Bilirubin Negative (Negative); Blood Trace (Negative); Epithelial Cells None Seen /HPF (None Seen); Glucose, Urine Negative (Negative); Hyaline Casts NONE SEEN /LPF (0-2); Ketones Negative (Negative); Leukocyte Esterase Negative (Negative); Nitrite Negative (Negative); Protein,Urine Dip Negative (Negative); RBC 0-2 /HPF (0-5); Specific Gravity 1.025 (1.005-1.030); Urobilinogen 0.2 mg/dL (0.2); WBC 0-2 /HPF (0-5)
[2024-08-14 17:15] LABS: ALBUMIN 4.3 g/dL (3.5-5.0); ANION GAP 10.6 MEQ/L (5-15); BILIRUBIN,TOTAL 0.2 mg/dL (0.2-1.3); Calcium 8.8 mg/dL (8.4-10.2); Creatinine 1 0.66 mg/dL (0.52-1.04); EST GLOMERULAR FILTRATION RATE 109.5 ML/MIN; Total Protein 7.4 g/dL (6.3-8.2)
[2024-08-14 20:04] VITALS: RESP 18
--- NOTE | 2024-08-14 20:22 | XRAY ---
CLINICAL HISTORY: RUQ pain, R flank pain COMPARISON: No prior studies available for comparison. TECHNIQUE: CT of the abdomen and pelvis was performed with and without contrast 80 cc Isovue 370, with the following protocol: axial images with, and reconstructed coronal and sagittal images. One of the following dose reduction techniques was utilized for this exam: Automated exposure control, adjustment of the mA and/or kV according to patient size, and use of iterative reconstruction. FINDINGS: Abdomen: Liver: Hepatomegaly, measuring 17.8 cm at the largest craniocaudal span in the right lobe No focal lesions, cysts, or masses were identified. Hepatic vasculature and biliary ducts are unremarkable. Gallbladder and Biliary System: The gallbladder is normal in size and shape. No wall thickening, pericholecystic fluid, or gallstones were identified. The common bile duct is normal in caliber without dilation. Pancreas: Pancreatic head, body, and tail are visualized and appear normal in size and density. No pancreatic masses or calcifications were noted. The pancreatic duct is not dilated. Spleen: Normal in size, shape, and density. No splenic lesions or masses were identified. Kidneys and Adrenal Glands: Both kidneys are normal in size, shape, and position. Cortical thickness is within normal limits. No renal or ureteric calculi or hydronephrosis. Normal excretion of contrast of delayed images. Adrenal glands are unremarkable with no evidence of masses or hyperplasia. Pelvis: Urinary Bladder: Normal in contour and wall thickness. No intraluminal lesions identified. Uterus: Uterus is bulky retroverted with fluid within the endometrial canal. Ovaries: Not well visualized but no gross abnormalities noted. Vagina: Normal in contour and wall thickness. Cervix: No evidence of mass or abnormal thickening. Peritoneal and Retroperitoneal Structures: No free fluid or abnormal fluid collections were identified within the abdomen or pelvis. No lymphadenopathy was noted. Bowel: Few colonic diverticulae are seen along descending and sigmoid colon, however no pericolonic fat stranding or abscess seen. No evidence of bowel obstruction or wall thickening. Appendix is normal-sized 4.8 mm with few tiny appendicoliths within its lumen. No periappendiceal fat stranding or fluid collection seen. Hiatal hernia is present with intrathoracic herniation of the stomach. Bones and Soft Tissues: Pelvic bones and soft tissues are unremarkable. No fractures or abnormal masses were identified. Bilateral fat containing inguinal hernias. Lung bases show bibasilar atelectatic changes. IMPRESSION: 1. No renal or ureteric calculus or any signs of obstructive uropathy. 2. Noncomplicated colonic diverticulosis. 3. Bulky uterus with fluid within its canal. Further evaluation with ultrasound is recommended. 4. Small sliding hiatal hernia (type I). 5. Clinical correlation is recommended Electronically Signed by: Jared Brooks MD. (08/14/2024 20:18:48 EST)
--- NOTE | 2024-08-14 20:44 | XRAY ---
CLINICAL HISTORY: left sided cp, recently dx PE COMPARISON: 07/31/2024 CT Chest TECHNIQUE: Contiguous 3.[address] images of the chest were acquired with administration of intravenous contrast. Coronal and sagittal reconstructions were obtained. 80 ml Isovue 370 was administered for post contrast images. One of the following dose reduction techniques were utilized for this exam: Automated exposure control, adjustment of the mA and/or kV according to patient size, and use of iterative reconstruction CTDI: 61.88 mGy, DLP: 1804.5 mGy.cm FINDINGS: Lungs: Slight subpleural reticulation seen in the posterior segments of both upper lobes and lower lobes suggesting mild fibrotic changes/gravitation atelectasis. Stable since prior. No evidence of consolidation, collapse, or focal lesions. No ground-glass opacities Mild left apical pleural thickening seen No pleural effusion seen on either side. Mediastinum: No mediastinal mass or abnormal lymphadenopathy. Prior small reactive paraortic lymph node not appreciable, likely interval resolution Normal appearance of the thymus. Hiatal hernia. Hilar Structures: Normal size and configuration, no enlargement. Heart and Great Vessels: Normal heart size and configuration. No pericardial effusion. Normal caliber and course of the thoracic aorta and other great vessels. No significant atherosclerosis or aneurysm. Normal enhancement of the great vessels post-contrast. Pulmonary Arteries: Interval resolution of the previously seen thrombus in the right lower lobe posterior subsegmental artery branch. No evidence of pulmonary embolism. Normal size and course of the pulmonary arteries. Esophagus: Evidence of diaphragmatic hiatus hernia, stable Normal course and caliber. No masses or dilatation. Bones: No fractures or lytic/sclerotic lesions. Normal bone density and alignment. No evidence of rib fractures. Chest Wall: No masses or soft tissue abnormalities. Upper Abdomen: Slightly reduced density of the liver suggests parenchymal steatosis Visualized portions of the spleen, pancreas, adrenal glands, and kidneys are normal. Thyroid: Normal size and morphology. No nodules or masses. IMPRESSION: 1. Normal appearing pulmonary vasculature with Interval resolution of the previously seen thrombus in the right lower lobe posterior subsegmental artery branch. 2. No lung collapse or plerual effusion seen. 3. Stable minimal fibrotic reticulation / gravitational changes in posterior lung segments. 4. Stable hiatal hernia and slight hepatic parenchymal steatosis. 5. Clinical and lab correlation advised. Electronically Signed by: Jared Brooks MD. (08/14/2024 20:40:04 EST)
[2024-08-14 21:09] VITALS: BP 121/73; PULSE 73; O2SAT 98
== END 2024-08-14 21:18 | disposition home or self-care (01) ==
LOC: ED 15:19
DX: K44.9 Diaphragmatic hernia without obstruction or gangrene (principal); K57.30 Diverticulosis of large intestine without perforation or abscess without bleeding; R10.11 Right upper quadrant pain; D64.9 Anemia, unspecified; Z86.711 Personal history of pulmonary embolism; R11.2 Nausea with vomiting, unspecified; Z79.01 Long term (current) use of anticoagulants; Z79.899 Other long term (current) drug therapy
CPT/HCPCS: 36415; 71260; 74178; 80053; 81001; 81025; 83690; 84484; 85025; 93005; 96374; 96375; 99284; 99285; J2270; J2405